=== PATIENT | male | born 2000 | race Two or more races ===

== ENCOUNTER 2021-10-09 11:28 | Emergency (ER) | payer SELFPAY ==
[~2021-10-09] VITALS: Ht 177.8 cm; Wt 113.4 kg
[2021-10-09 14:42] VITALS: BP 117/84
== END 2021-10-09 14:32 | disposition home or self-care (01) ==
LOC: EDBD 11:28 → ER 11:28
DX: R56.9 Unspecified convulsions (principal)
CPT/HCPCS: 93005